=== PATIENT | female | born 1960 | race Two or more races ===

== ENCOUNTER 2018-08-05 05:49 | Day surgery (SDC) | payer OTHER ==
[~2018-08-05 05:49] MED LIST: AMBIEN10 MG PO; DIOVAN160 M1 PO; NORFLEX PO; TORADOL PO
== END 2018-08-05 10:50 | disposition home or self-care (01) ==
LOC: CIR.AMB 05:49
DX: G56.02 Carpal tunnel syndrome, left upper limb (principal)